=== PATIENT | female | born 1990 | race Caucasian/White ===

== ENCOUNTER 2023-08-27 14:27 | Emergency (ER) | payer BC, OTHER ==
[2023-08-27 14:45] VITALS: BP 129/90; PULSE 95; RESP 16; TEMP 98.2; BMI 21.7
[2023-08-27] MEDS ORDERED: oxyCODONE HCL 5 MG TABLET PO ONE (14:45)
[2023-08-27] MEDS ORDERED: ACETAMINOPHEN 325 MG TABLET (FP) PO ONE (14:45)
== END 2023-08-27 15:12 | disposition home or self-care (01) ==
LOC: FER 14:27
DX: T24.211A Burn of second degree of right thigh, initial encounter (principal)
CPT/HCPCS: 99283-25